=== PATIENT | female | born 1980 | race Caucasian/White ===

== ENCOUNTER 2019-07-13 10:38 | Emergency (ER) | payer MEDICAID ==
[~2019-07-13] VITALS: Ht 144.8 cm; Wt 43.3 kg
[~2019-07-13 10:38] MED LIST: IBUP200C11 PO
[2019-07-13 10:50] VITALS: Ht 144.8 cm; Wt 43.3 kg
[2019-07-13] MEDS ORDERED: ACETAMINOPHEN 500 MG TAB PO STA (10:58)
[2019-07-13] MEDS ORDERED: METHYLPREDNISOLONE 125 MG INJ IV ONE (12:30)
[2019-07-13 13:33] VITALS: BP 126/74; PULSE 80; RESP 20
== END 2019-07-13 13:33 | disposition home or self-care (01) ==
LOC: E/R 10:38
DX: D64.9 Anemia, unspecified (principal); Z85.79 Personal history of other malignant neoplasms of lymphoid, hematopoietic and related tissues
CPT/HCPCS: 36415; 70450; 80048; 85025; Z7502; Z7610